=== PATIENT | female | born 1995 | race African-American/Black ===

== ENCOUNTER 2021-02-14 12:16 | Outpatient (CLI) | payer BC, SELFPAY ==
[2021-02-14 13:26] LABS: Hematocrit 37.8 % (37.0-47.0); Hemoglobin 11.7 g/dL (12.0-15.0); Mean Corpuscular Hemoglobin 23.5 pg (26-34); Mean Corpuscular Volume 75.9 fl (80-100); Mean Platelet Volume 10.2 fl (7.4-10.4); Platelet Count Result 296 k/mm3 (150-375); Red Blood Count 4.98 M/mm3 (4.2-5.4); Red Cell Distribution Width 16.8 % (11.5-14.5); White Blood Count 8.6 K/mm3 (4.5-10.0)
[2021-02-14 13:37] LABS: Prothrombin Time 13.8 Seconds (11.1-14.7)
[2021-02-14 13:38] LABS: Partial Thromboplastin Time 33.2 SECONDS (22.3-36.8)
[2021-02-14 13:56] LABS: Beta HCG Quantitative < 2.39 mIU/ML
[2021-02-14 14:01] LABS: Lymphocytes Absolute Manual 2.83 K/mm3 (1.1-4.5); Neutrophils Percent Manual 66 % (46-73); Total Cells Counted 100
[2021-02-14 14:02] LABS: Eosinophils Absolute Manual 0.08 K/mm3 (0.02-0.5); Eosinophils Percent Manual 1 % (0-4); Hypochromasia 3+ (NORMAL); Platelet Estimate Adequate (Adequate)
== END 2021-02-14 12:17 | disposition home or self-care (01) ==
PROVIDERS: PCP Obstetrics & Gynecology; Visit Provider Obstetrics & Gynecology
DX: N93.9 Abnormal uterine and vaginal bleeding, unspecified (principal)
CPT/HCPCS: 36415; 84443; 84702; 85025; 85610; 85730

== ENCOUNTER 2022-05-21 10:21 | Emergency (ER) | payer BC, SELFPAY ==
[2022-05-21 10:30] VITALS: BP 153/102; PULSE 114; RESP 20; TEMP 37.2; O2SAT 98
--- NOTE | 2022-05-21 10:49 | ED.URI ---
HPI - URI/Sore Throat General Chief Complaint: Upper Respiratory Infection Stated Complaint: Sore throat Time Seen by Provider: 05/21/22 10:51 Source: patient and RN notes reviewed Mode of arrival: ambulatory Limitations: no limitations History of Present Illness HPI Narrative: 27-year-old female who is 12 weeks presents with concern for sore throat, painful swallowing. Reports symptoms started yesterday. She reports having a slight fever this morning. She reports using Tylenol and throat spray. She denies trouble breathing, swollen lips, swollen tongue, nasal congestion, rhinorrhea, headache, nausea, vomiting. MD elicited complaint: sore throat Related Data Allergies Allergy/AdvReac Type Severity Reaction Status Date / Time No Known Allergies Allergy Verified 02/28/21 15:14 Review of Systems Review of Systems: CONSTITUTIONAL: Reports malaise, low-grade fever yesterday. Denies chills, sweats EYES: Denies visual changes, redness, or discharge. ENT: Denies rhinorrhea, congestion, sinus pain, otalgia. Reports painful swallowing and sore throat. CARDIOVASCULAR: Denies chest pain, palpitations, or edema. RESPIRATORY: Denies cough. Denies dyspnea. GASTROINTESTINAL: Denies abdominal pain, nausea, vomiting, diarrhea SKIN: Denies rash or itching. MUSCULOSKELETAL: Denies myalgia. NEUROLOGIC: Denies headache. All systems reviewed & are unremarkable except as noted in HPI and below PMFSH Past Medical History Medical History Anxiety Asthma Diabetes Endometriosis History of miscarriage x 3 IBS (irritable bowel syndrome) PCOS (polycystic ovarian syndrome) Von Willebrand disease, type I Surgical History Surgical History History of ankle surgery History of cholecystectomy History of endoscopy [place] teeth removed Family History Family History Father Hypertension Hyperlipidemia Mother Migraines Grandparent Asthma Breast cancer Diabetes mellitus Hypertension Social History Social History Smoking status: Never smoker Alcohol intake: current Substance use: never Comments At time of signature, agree with nursing past medical, surgical, social and family history. There is no relevant family history pertinent to the presenting complaint Exam Narrative: GENERAL: Well-appearing, well-nourished, and in no acute distress. HEAD: Normocephalic EYES: PERRLA, conjunctivae clear ENT: Nares clear. Mucous membranes moist. TM pearly pablo with dull light reflex bilaterally; no tragal tenderness. Oropharynx erythematous, excoriated, edematous. Tonsils enlarged and without exudate, no drooling, no trismus, uvula midline. Hoarse voice NECK: Supple. No lymphadenopathy CHEST: Clear to auscultation, breath sounds equal. No wheezing, rhonchi, rales, or stridor. No respiratory distress, speaks in full sentences. HEART: Regular rate and rhythm. No murmur heard. SKIN: Warm, dry, no rash. NEURO: Alert and oriented x3. PSYCH: Normal mood and affect Course Course Emergency Course: Discussed strict return to emergency room if her symptoms worsen or do not improve. Offered transfer to emergency room now, patient feels she can go home and knows when/if she needs to seek care at the emergency room Patient is aware of diagnosis, understands and agrees to treatment plan. Anticipatory guidance given. Patient agrees to follow-up as directed and is aware of reasons to seek care at the emergency department. Portions of this record may have been created with voice recognition software Level of Care: Express Care Visit Vital Signs Vital signs: Vital Signs Temperature 98.9 F 05/21/22 10:30 Pulse Rate 114 H 05/21/22 10:30 Respiratory Rate 20 05/21/22 10:30 Blood Pressure 153/102 H 05/21/22 10:30
[2022-05-21] MEDS: methylPREDNISolone SOD SUCC 125 MG VIAL IM (10:59)
== END 2022-05-21 11:38 | disposition home or self-care (01) ==
PROVIDERS: Emergency Provider Nurse Practitioner
DX: O99.511 Diseases of the respiratory system complicating pregnancy, first trimester (principal); Z3A.12 12 weeks gestation of pregnancy; J03.90 Acute tonsillitis, unspecified
CPT/HCPCS: 87081; 87147; 96372; 99213; G0463; J2930

== ENCOUNTER 2022-05-28 08:35 | Emergency (ER) | payer BC, SELFPAY ==
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
[2022-05-28] MEDS: IBUPROFEN 600 MG TABLET PO (09:43)
[2022-05-28 09:47] VITALS: BP 153/90; PULSE 93; RESP 18; TEMP 36.7; O2SAT 100
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
== END 2022-05-28 10:30 | disposition home or self-care (01) ==
PROVIDERS: Emergency Provider Emergency Medicine; PCP Family Medicine
DX: S00.03XA Contusion of scalp, initial encounter (principal); S16.1XXA Strain of muscle, fascia and tendon at neck level, initial encounter; V43.62XA Car passenger injured in collision with other type car in traffic accident, initial encounter
CPT/HCPCS: 70450; 72125; 99284; A9270

== ENCOUNTER 2022-09-24 11:14 | Emergency (ER) | payer BC, SELFPAY ==
--- NOTE | 2022-09-24 11:20 | ED.URI ---
HPI - URI/Sore Throat General Chief Complaint: Upper Respiratory Infection Stated Complaint: sore throat, cough, chest pain Time Seen by Provider: 09/24/22 11:21 Source: patient and RN notes reviewed History of Present Illness HPI Narrative: Patient is a 27-year-old female who presents to urgent care with complaints of cough, sore throat and chest tightness. Patient states that she gets the chest tightness with her asthma flare ups. States that it started on Saturday. Denies any fevers, congestion, nausea or vomiting. Patient has been using her ProAir inhaler as well as Tylenol cold and flu and Robitussin. Patient states that negative at home for COVID. No other acute complaints. No acute distress noted. Patient aware of the plan of care. Some parts of this dictation were generated by voice recognition software and may contain typographical and/or grammatical inaccuracies. Related Data Home Medications Medication Instructions Recorded Confirmed medroxyprogesterone 10 mg tablet 10 mg PO DAILY 09/24/22 09/24/22 Allergies Allergy/AdvReac Type Severity Reaction Status Date / Time No Known Allergies Allergy Verified 09/24/22 11:27 Review of Systems Review of Systems: CONSTITUTIONAL: Denies fever, chills, or sweats. EYES: Denies visual changes, redness, or discharge. ENT: Reports of sore throat CARDIOVASCULAR: Denies chest pain, palpitations, or edema. RESPIRATORY: Reports of cough and chest tightness GASTROINTESTINAL: Denies abdominal pain, nausea, vomiting, or diarrhea. GENITOURINARY: Denies dysuria or hematuria. SKIN: Denies rash or itching. MUSCULOSKELETAL: Denies back pain, joint pain, or myalgia. NEUROLOGIC: Denies headache, numbness, or weakness. All other systems reviewed are negative, except as documented in HPI. [facility] Past Medical History Medical History (Updated 09/24/22 @ 11:47 by TRUDY Ray) Anxiety Asthma Diabetes Endometriosis History of miscarriage x 3 IBS (irritable bowel syndrome) Patient denies significant medical history PCOS (polycystic ovarian syndrome) Von Willebrand disease, type I Surgical History Surgical History (Updated 07/12/22 @ 10:44 by Kuldip Wen) History of ankle surgery History of cholecystectomy History of endoscopy [place] teeth removed Family History Family History (System 07/12/22 @ 10:44 by Kuldip Wen) Father Hypertension Hyperlipidemia Mother Migraines Grandparent Asthma Breast cancer Diabetes mellitus Hypertension Social History Social History (System 07/12/22 @ 10:44 by Kuldip Wen) Smoking status: Never smoker Alcohol intake: current Substance use: never Comments At the time of my signature, I reviewed and agree with the nursing past medical, surgical, social, and family history. There is no relevant family history pertinent to the patient complaint. Exam Narrative: GENERAL: This is a well-nourished, well-developed patient, in no apparent distress. HEAD: normocephalic, atraumatic. EYES: PERRL. Sclera clear/white. Vision is grossly intact. EARS: External ears normal, auditory canals clear and without drainage, TMs normal without perforation. Hearing grossly intact. NOSE: External nose normal with no obvious nasal discharge, nares without redness, clear yellow rhinorrhea. THROAT: Mucous membranes moist, mild erythema in the posterior oropharynx without exudate or ulceration. Moderate postnasal drainage. NECK: Neck supple CARDIOVASCULAR: Regular rate and rhythm without murmurs, gallops, or rubs. RESPIRATORY: Cough noted exam. Clear to auscultation. Breath sounds equal bilaterally. No wheezes, rales, or rhonchi. SKIN: warm, intact with no suspicious lesions or rash, good texture and turgor. NEURO: awake, alert, and oriented to person, place and time. There were no obvious focal neurologic abnormalities. EXTREMITIES: No clubbing, cyanosis, or edema. Course Course Level of Care: Express Care Visit Vital Sig
[2022-09-24 11:31] VITALS: BP 135/88; PULSE 99; RESP 16; TEMP 37.1; O2SAT 100
== END 2022-09-24 11:51 | disposition home or self-care (01) ==
PROVIDERS: Emergency Provider Nurse Practitioner Family; PCP Radiology Radiation Oncology
DX: J00 Acute nasopharyngitis [common cold] (principal); E28.2 Polycystic ovarian syndrome; J45.909 Unspecified asthma, uncomplicated; E11.9 Type 2 diabetes mellitus without complications; K58.9 Irritable bowel syndrome, unspecified; N80.9 Endometriosis, unspecified; D68.01 Von Willebrand disease, type 1
CPT/HCPCS: 87081; 87804; 87880; 99213; G0463

== ENCOUNTER 2022-09-30 13:19 | Emergency (ER) | payer BC, SELFPAY ==
[2022-09-30] VITALS (7 sets, daily range): BP systolic 145–182; BP diastolic 86–106; PULSE 75–85; RESP 16–20; TEMP 36.3–36.8; O2SAT 98–100
--- NOTE | ~2022-09-30 | CT_ITS ---
EXAMINATION: CT brain wo con DATE: 09/30/2022 17:31 INDICATION: dizziness . TECHNIQUE: Computed tomography (CT) of the head was performed without intravenous contrast. The mA wa s adjusted according to patient size. Iterative reconstruction technique was employed. The dose-lengt h product was 605.33 mGy-cm. COMPARISON: 05/28/2022. FINDINGS: No acute intracranial hemorrhage or extra-axial fluid collection. No hydrocephalus, mass, or herniation. No acute ischemic infarct. Unremarkable dural venous sinus attenuation. No acute osseous abnormality. Mucosal thickening in the ethmoid air cells and sphenoid sinuses. Mucosal thickening and an air-fluid level in the right maxillary sinus. The remaining aerated spaces are clear. IMPRESSION: No acute intracranial process. CT findings suggestive of acute right maxillary sinusitis Reviewed, dictated and finalized at location K. 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
--- NOTE | 2022-09-30 13:26 | ECG_ITS ---
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
[2022-09-30 13:42] LABS: Basophils Absolute Auto 0.1 K/mm3 (0.0-0.1); Basophils Percent Auto 0.7 % (0.2-1.2); Eosinophils Absolute Auto 0.3 K/mm3 (0-0.3); Eosinophils Percent Auto 3.1 % (0-4.4); Hematocrit 37.2 % (37.0-47.0); Hemoglobin 11.6 g/dL (12.0-15.0); Immature Granulocyte Absolute 0.04 K/mm3 (0.00-0.031); Immature Granulocyte Percent A 0.4 % (0-0.5); Lymphocytes Absolute Auto 3.79 K/mm3 (0.9-3.2); Lymphocytes Percent Auto 36.4 % (18.3-44.2); Mean Corpuscular HGB Conc 31.2 g/dl (32-36); Mean Corpuscular Hemoglobin 25.1 pg (26-34); Mean Corpuscular Volume 80.3 fl (80-100); Mean Platelet Volume 10.1 fl (7.4-10.4); Monocytes Absolute Auto 0.6 K/mm3 (0.1-0.6); Monocytes Percent Auto 5.3 % (2.6-8.5); Neutrophils Absolute Auto 5.6 K/mm3 (1.3-6.7); Neutrophils Percent Auto 54.1 % (45.5-73.1); Platelet Count Result 289 k/mm3 (150-375); Red Blood Count 4.63 M/mm3 (4.2-5.4); Red Cell Distribution Width 15.9 % (11.5-14.5); White Blood Count 10.4 K/mm3 (4.5-10.0)
[2022-09-30 13:51] LABS: Alanine Aminotransferase 23 U/L (6-35); Albumin Level 4.4 g/dL (3.5-5.1); Alkaline Phosphatase 66 U/L (38-126); Anion Gap 8 mmol/L (8-16); Aspartate Amino Transferase 25 U/L (14-36); Bilirubin,Total 0.2 mg/dL (0.2-1.3); Blood Urea Nitrogen 9 mg/dL (7-17); Calcium 8.9 mg/dL (8.4-10.2); Carbon Dioxide 29 mmol/L (22-30); Chloride 102 mmol/L (98-107); Estimated Glomerular Filt Rate > 60; Glucose 89 mg/dL (65-110); Potassium 3.8 mmol/L (3.4-5.0); Sodium 139 mmol/L (137-145)
[2022-09-30] MEDS: MECLIZINE HCL 25 MG TABLET PO (15:39)
[2022-09-30] MEDS: SODIUM CHLORIDE 0.9% IV 1,000 ML 999 ML IV CONT ×2 (15:41→17:43)
--- NOTE | 2022-09-30 17:05 | ED.GENADULT ---
HPI - General Adult General Chief complaint: Dizziness Stated complaint: NAUSEA,DIZZINESS Time Seen by Provider: 09/30/22 15:23 History of Present Illness HPI narrative: Patient is a 27-year-old female who presents to the ER with sudden onset dizziness. Occurred while she was at work. It made her feel sweaty and nauseous. She also had some double vision. Symptoms are worse with movement. Reports recent viral URI with some congestion. No ear pressure or pain. No ringing in the ears. Has not had vertigo before. No numbness or tingling in the arms or legs. No slurred speech or extremity weakness. Patient has had some shortness of breath related to anxiousness. Related Data Home Medications Medication Instructions Recorded Confirmed medroxyprogesterone 10 mg tablet 10 mg PO DAILY 09/24/22 09/24/22 Allergies Allergy/AdvReac Type Severity Reaction Status Date / Time No Known Allergies Allergy Verified 09/24/22 11:27 Review of Systems Review of Systems: All systems reviewed & are unremarkable except as noted in HPI and below Constitutional: Constitutional: Denies chills, Denies fatigue and Denies fever(s) Eyes: Eyes: Reports change in vision (Double) and Denies photophobia ENT: Reports dizziness, Denies nasal congestion and Denies sore throat Cardiovascular: Cardiovascular: Denies chest pain, Denies rapid heart rate and Denies radiating jaw, neck or arm pain Respiratory: Respiratory: Denies cough, Reports dyspnea and Denies wheezing Gastrointestinal: Gastrointestinal: Denies abdominal pain, Reports nausea and Denies vomiting Neurologic: Reports dizziness, Denies syncope, Denies focal weakness and Denies numbness [facility] Past Medical History Medical History (Updated 09/30/22 @ 18:19 by Ramiro Valles MD) Anxiety Asthma Diabetes Endometriosis History of miscarriage x 3 IBS (irritable bowel syndrome) Patient denies significant medical history PCOS (polycystic ovarian syndrome) Von Willebrand disease, type I Surgical History Surgical History (Updated 07/12/22 @ 10:44 by Kuldip Wen) History of ankle surgery History of cholecystectomy History of endoscopy [place] teeth removed Family History Family History (System 07/12/22 @ 10:44 by Kuldip Wen) Father Hypertension Hyperlipidemia Mother Migraines Grandparent Asthma Breast cancer Diabetes mellitus Hypertension Social History Social History (System 07/12/22 @ 10:44 by Kuldip Wen) Smoking status: Never smoker Alcohol intake: current Substance use: never Exam Narrative: GENERAL: Well-appearing, well-nourished, and in no acute distress. HEAD: Normocephalic, atraumatic. EYES: PERRLA and EOMI. left gaze nystagmus. ENT: Mucous membranes moist. TMs normal bilaterally and ear canals free of cerumen. NECK: Supple. CHEST: Clear to auscultation. No respiratory distress. HEART: Regular rate and rhythm. Normal peripheral pulses. ABDOMEN: Soft, nontender, nondistended. EXTREMITIES: Normal range of motion. Chronic edema left ankle. SKIN: Warm, dry, no rash. NEURO: No facial droop or slurred speech. Normal strength and coordination of the extremities. Patient does have left gaze nystagmus. Alert and oriented x3. PSYCH: Normal mood and affect. Course Course Emergency Course: Patient up and ambulatory and feeling much better with fluids and meclizine. She still little tired. CT without CVA but there is sinusitis likely causing patient's peripheral vertigo. Discharged with supportive care and antibiotics. Vital Signs Vital signs: Vital Signs Temperature 98.1 F 09/30/22 13:24 Pulse Rate 82 09/30/22 13:24 Respiratory Rate 20 09/30/22 13:24 Blood Pressure 182/100 H 09/30/22 13:24 Pulse Oximetry 100 09/30/22 13:24 Oxygen Delivery Room Air 09/30/22 13:24 Temperature 98.3 F 09/30/22 17:00 Pulse Rate 75 09/30/22 17:00 Respiratory Rate 16 09/30/22 17:00 Blood Pressure 145/86 H 09/30/22
== END 2022-09-30 18:40 | disposition home or self-care (01) ==
PROVIDERS: Emergency Provider Emergency Medicine; PCP Radiology Radiation Oncology
DX: R42 Dizziness and giddiness (principal); J32.9 Chronic sinusitis, unspecified; J45.909 Unspecified asthma, uncomplicated; E11.9 Type 2 diabetes mellitus without complications; E28.2 Polycystic ovarian syndrome; N80.9 Endometriosis, unspecified; K58.9 Irritable bowel syndrome, unspecified; D68.01 Von Willebrand disease, type 1; R94.31 Abnormal electrocardiogram [ECG] [EKG]
CPT/HCPCS: 36415; 70450; 80053; 81025; 85025; 93005; 96360; 96361; 99284; A9270; J7030

== ENCOUNTER 2022-12-18 18:14 | Emergency (ER) | payer BC, SELFPAY ==
[2022-12-18 18:23] VITALS: BP 155/93; PULSE 74; RESP 16; TEMP 36.8; O2SAT 100
[2022-12-18 18:29] VITALS: BP 155/93; PULSE 74; RESP 16; TEMP 36.8; O2SAT 100
--- NOTE | 2022-12-18 18:42 | ED.GENADULT ---
HPI - General Adult General Chief complaint: Urogenital-Female Stated complaint: CONGESTION/DIZZY/TIRED Source: patient Mode of arrival: ambulatory Limitations: no limitations History of Present Illness HPI narrative: Patient presents requesting STI testing. She has a new male sex partner and would like to have routine screening. He is asymptomatic. She denies any urinary frequency, dysuria, hematuria, hesitancy or other urinary symptoms. Reports some nausea, low back pain, vomiting and tenderness in her breasts which made her suspect she may be . She took a test approximately 1 month ago which was negative. She repeated test approximately 2 weeks ago which she thinks had two faint lines. She is requesting repeat test. History of irregular menstruation. Not a contraception. LMP at the end of October 2022. Related Data Allergies Allergy/AdvReac Type Severity Reaction Status Date / Time No Known Allergies Allergy Verified 12/18/22 18:24 Review of Systems Review of Systems: CONSTITUTIONAL: Denies fever, chills, or sweats. EYES: Denies visual changes, redness, or discharge. ENT: Denies rhinorrhea, congestion, sore throat, or otalgia. CARDIOVASCULAR: Denies chest pain, palpitations, or edema. RESPIRATORY: Denies cough or dyspnea. GASTROINTESTINAL: Reports nausea and vomiting. Denies diarrhea or abdominal pain GENITOURINARY: Denies dysuria or hematuria. SKIN: Denies rash or itching. MUSCULOSKELETAL:Reports low back pain. Reports breast tenderness NEUROLOGIC: Denies headache, numbness, dizziness, or weakness. PSYCHIATRIC: Denies anxiety or depression. ON LICENSE OF [facility] Past Medical History Medical History Anxiety Asthma Diabetes Endometriosis History of miscarriage x 3 IBS (irritable bowel syndrome) Patient denies significant medical history PCOS (polycystic ovarian syndrome) Von Willebrand disease, type I Surgical History Surgical History History of ankle surgery History of cholecystectomy History of endoscopy [place] teeth removed Family History Family History Father Hypertension Hyperlipidemia Mother Migraines Grandparent Asthma Breast cancer Diabetes mellitus Hypertension Social History Social History Smoking status: Never smoker Alcohol intake: current Substance use: never Exam Narrative: GENERAL: Well-appearing, well-nourished, and in no acute distress. HEAD: Normocephalic, atraumatic. EYES: PERRLA and EOMI. ENT: Nares clear, no rhinorrhea or epistaxis. Mucous membranes moist. Oropharynx without tonsillar hypertrophy exudate or other lesions. Bilateral TMs pearly pablo nonbulging NECK: Supple. No adenopathy or masses. No carotid bruits or JVD CHEST: Clear to auscultation. No respiratory distress. No wheezes rales or rhonchi HEART: Regular rate and rhythm. No murmur heard. Normal peripheral pulses. ABDOMEN: Soft, nontender, nondistended, normal active bowel sounds. EXTREMITIES: Normal range of motion. No edema. SKIN: Warm, dry, no rash. NEURO: No focal deficits. Alert and oriented x3. PSYCH: Normal mood and affect. Course Course Emergency Course: This is a 27-year-old female who presented for evaluation of nausea, low back pain and breast tenderness requesting STI testing and test. test was negative. She declined pelvic exam. I think this is somewhat reasonable given the fact that she does not have any vaginal discharge or bleeding. She does have 1+ leukocytes in her urine. reports she does not have any urinary symptoms, she does have nausea and low back pain which would suggest urinary tract infection. We discussed waiting for urine culture results before initiating therapy versus starting
== END 2022-12-18 18:47 | disposition home or self-care (01) ==
PROVIDERS: Emergency Provider Nurse Practitioner
DX: N39.0 Urinary tract infection, site not specified (principal); R11.2 Nausea with vomiting, unspecified; J45.909 Unspecified asthma, uncomplicated; E11.9 Type 2 diabetes mellitus without complications; N80.9 Endometriosis, unspecified; E28.2 Polycystic ovarian syndrome; D68.01 Von Willebrand disease, type 1
CPT/HCPCS: 81003; 81025; 87086; 87088; 87491; 87591; 87661; 99214; G0463

== ENCOUNTER 2023-01-31 18:28 | Emergency (ER) | payer BC, SELFPAY ==
--- NOTE | 2023-01-31 18:35 | ED.GENADULT ---
HPI - General Adult General Chief complaint: Dental/Oral Stated complaint: DRY MOUTH/BUMP ON BACK OF TONGUE Source: patient and RN notes reviewed History of Present Illness HPI narrative: 27 yo F presents to urgent care with complaints of dry mouth today and a suspicious bump on back of tongue. Pt states she woke up with these symptoms. Pt reports having allergies last week which she took OTC allergy medicine for. Pt denies any pain, fevers, chills, sore throat, or other complaints. Related Data Home Medications Medication Instructions Recorded Confirmed albuterol sulfate 90 mcg/actuation inhalation 01/31/23 aerosol inhaler medroxyprogesterone 10 mg tablet mg 01/31/23 Allergies Allergy/AdvReac Type Severity Reaction Status Date / Time No Known Allergies Allergy Verified 01/31/23 18:40 Review of Systems Review of Systems: Pertinent positives and pertinent negatives per HPI. [facility] Past Medical History Medical History Anxiety Asthma Diabetes Endometriosis History of miscarriage x 3 IBS (irritable bowel syndrome) Patient denies significant medical history PCOS (polycystic ovarian syndrome) Von Willebrand disease, type I Surgical History Surgical History History of ankle surgery History of cholecystectomy History of endoscopy [place] teeth removed Family History Family History Father Hypertension Hyperlipidemia Mother Migraines Grandparent Asthma Breast cancer Diabetes mellitus Hypertension Social History Social History Smoking status: Never smoker Alcohol intake: current Substance use: never Comments At the time of my signature, I reviewed and agree with the nursing past medical, surgical, social, and family history. There is no relevant family history pertinent to the patient complaint. Exam Narrative: GENERAL: This is a well-nourished, well-developed patient, in no apparent distress. HEAD: normocephalic, atraumatic. EYES: Sclera clear/white. Vision is grossly intact. EARS: External ears normal, auditory canals clear and without drainage. Hearing grossly intact. NOSE: External nose normal with no obvious nasal discharge, nares without redness, no rhinorrhea. THROAT: Mucous membranes moist, posterior pharynx clear. MOUTH: flesh-colored, raised, papilae to back of tongue NECK: Neck supple, non-tender without lymphadenopathy, masses or thyromegaly. CARDIOVASCULAR: Regular rate and rhythm without murmurs, gallops, or rubs. RESPIRATORY: Clear to auscultation. Breath sounds equal bilaterally. No wheezes, rales, or rhonchi. GASTROINTESTINAL: Abdomen soft, non-tender, nondistended. Bowel sounds are active. No hepato-splenomegaly, or palpable masses. No guarding. SKIN: warm, intact with no suspicious lesions or rash, good texture and turgor. NEURO: awake, alert, and oriented to person, place and time. There were no obvious focal neurologic abnormalities. EXTREMITIES: No clubbing, cyanosis, or edema. No joint tenderness, effusion, or edema noted. BACK: Nontender without deformity or crepitance. No flank tenderness. Course Course Level of Care: Express Care Visit Vital Signs Vital signs: Vital Signs Temperature 98.1 F 01/31/23 18:43 Pulse Rate 84 01/31/23 18:43 Respiratory Rate 16 01/31/23 18:43 Blood Pressure 154/106 H 01/31/23 18:43 Pulse Oximetry 100 01/31/23 18:43 Oxygen Delivery Room Air 01/31/23 18:43 Temperature 98.1 F 01/31/23 18:43 Pulse Rate 84 01/31/23 18:43 Respiratory Rate 16 01/31/23 18:43 Blood Pressure 154/106 H 01/31/23 18:43 Pulse Oximetry 100 01/31/23 18:43 Oxygen Delivery Room Air 01/31/23 18:43 reviewed Medical Decision Making MDM Narrative Medical decision making na
[2023-01-31 18:43] VITALS: BP 154/106; PULSE 84; RESP 16; TEMP 36.7; O2SAT 100
== END 2023-01-31 19:06 | disposition home or self-care (01) ==
PROVIDERS: Emergency Provider Nurse Practitioner Family; PCP Family Medicine
DX: J30.2 Other seasonal allergic rhinitis (principal); J45.909 Unspecified asthma, uncomplicated; E11.9 Type 2 diabetes mellitus without complications; N80.9 Endometriosis, unspecified; E28.2 Polycystic ovarian syndrome
CPT/HCPCS: 99211; G0463

== ENCOUNTER 2023-03-29 10:11 | Emergency (ER) | payer BC, SELFPAY ==
--- NOTE | ~2023-03-29 | XR_ITS ---
EXAMINATION: XR hand LT min 3V DATE: 03/29/2023 10:49 INDICATION: Pain at the left fourth and fifth metacarpals after the hand was shut in a car door. TECHNIQUE: Posteroanterior, oblique and lateral views of the left hand were obtained. COMPARISON: None. FINDINGS: Alignment is normal. No fracture. Joint spaces are normal. Soft tissues are unremarkable. IMPRESSION: 1. . Negative left hand radiographs. Reviewed, dictated and finalized at location A.
--- NOTE | 2023-03-29 10:15 | ED.GENADULT ---
HPI - General Adult General Chief complaint: Extremity Injury, Upper Stated complaint: MED REFILL Time Seen by Provider: 03/29/23 10:14 Source: patient Mode of arrival: ambulatory Limitations: no limitations History of Present Illness HPI narrative: Patient is a 28-year-old female who presents with left hand pain after shutting it in a door on saturday. Patient has been using ice, Akira wrap, ibuprofen with mild relief. States she is still able to use her fingers and hand normally. Denies any numbness, tingling, weakness to left hand. Also requesting refill for control. States she has a primary care provider appointment in 3 weeks, but needs control to prevent heavy bleeding with periods. Related Data Home Medications Medication Instructions Recorded Confirmed albuterol sulfate 90 mcg/actuation 2 inh inhalation QID PRN Shortness 01/31/23 03/29/23 aerosol inhaler Of Breath desmopressin 0.83 mcg/spray (0.1 0.83 mcg intranasal PRN PRN 01/31/23 03/29/23 mL) nasal spray Menstrual Pain medroxyprogesterone 10 mg tablet 10 mg PO DAILY 01/31/23 03/29/23 Allergies Allergy/AdvReac Type Severity Reaction Status Date / Time No Known Allergies Allergy Verified 03/29/23 10:34 Review of Systems Review of Systems: All systems reviewed & are unremarkable except as noted in HPI and below Constitutional: Constitutional: Denies body ache(s), Denies chills, Denies fatigue, Denies fever(s), Denies headache(s), Denies malaise and Denies weakness Eyes: Eyes: Denies blurry vision, Denies irritation and Denies loss of vision ENT: Denies otalgia, Denies headache(s), Denies nasal discharge, Denies sinus pain and Denies sore throat Cardiovascular: Cardiovascular: Denies chest pain, Denies irregular heart rhythm and Denies dyspnea Respiratory: Respiratory: Denies dyspnea Gastrointestinal: Gastrointestinal: Denies abdominal pain, Denies melena, Denies hematochezia, Denies diarrhea, Denies nausea and Denies vomiting Musculoskeletal: Musculoskeletal: Denies back pain, Denies myalgias and Reports arthralgias (left hand) Integumentary/Breasts: Skin/Breast: Denies pruritus and Denies rash Neurologic: Denies headache(s), Denies loss of vision and Denies weakness Psychiatric: Psychiatric: Reports no additional psychiatric complaints Endocrine: Endocrine: Denies fatigue PMFSH Past Medical History Medical History Anxiety Asthma Diabetes Endometriosis History of miscarriage x 3 IBS (irritable bowel syndrome) Patient denies significant medical history PCOS (polycystic ovarian syndrome) Von Willebrand disease, type I Surgical History Surgical History History of ankle surgery History of cholecystectomy History of endoscopy [place] teeth removed Family History Family History Father Hypertension Hyperlipidemia Mother Migraines Grandparent Asthma Breast cancer Diabetes mellitus Hypertension Social History Social History Smoking status: Never smoker Alcohol intake: current Substance use: never Comments At time of signature, agree with nursing past medical, surgical, social and family history. There is no relevant family history pertinent to the presenting complaint. Exam Const: General: cooperative, healthy appearing, comfortable, no acute distress and well nourished Nutritional Appearance: well nourished Orientation/consciousness: patient oriented x3 Limitations: no limitations HENMT: Head: normal to inspection, normocephalic and atraumatic Ears: hearing grossly normal bilaterally and external ears normal Face/Nose/Sinus: Normal external nose present, normal facial exam and face symmetric Face and sinus: normal facial exam and face symmetric Mouth: Yes lip
[2023-03-29 10:27] VITALS: BP 150/105; PULSE 71; RESP 16; TEMP 36.8; O2SAT 100
[2023-03-29 10:29] VITALS: BP 159/97; PULSE 80; RESP 16; TEMP 36.8; O2SAT 100
== END 2023-03-29 11:25 | disposition home or self-care (01) ==
PROVIDERS: Emergency Provider Nurse Practitioner Family; PCP Family Medicine
DX: M79.642 Pain in left hand (principal); Z76.0 Encounter for issue of repeat prescription; J45.909 Unspecified asthma, uncomplicated; E11.9 Type 2 diabetes mellitus without complications; E28.2 Polycystic ovarian syndrome
CPT/HCPCS: 73130; 99213; G0463

== ENCOUNTER 2023-04-02 12:39 | Emergency (ER) | payer BC, SELFPAY ==
[2023-04-02] VITALS (12 sets, daily range): BP systolic 113–170; BP diastolic 84–95; PULSE 60–81; RESP 16–26; TEMP 36.7; O2SAT 98–100
--- NOTE | ~2023-04-02 | XR_ITS ---
EXAMINATION: XR chest 2V DATE: 04/02/2023 13:21 INDICATION: Midline chest pain. Shortness of breath. TECHNIQUE: Frontal and lateral views of the chest were obtained. COMPARISON: Chest single view 06/29/2021 FINDINGS: The chest demonstrates clear lungs without pneumonia, pleural effusion, or pneumothorax. Th e heart size is normal. Surgical clips in the right upper quadrant are likely from cholecystectomy. IMPRESSION: 1. No acute cardiopulmonary disease. Reviewed, dictated and finalized at location L.
--- NOTE | 2023-04-02 12:41 | ECG_ITS ---
Measurements Intervals [place] Rate: 100 P: 48 CT: 145 QRS: -29 QRSD: 89 T: 27 QT: 341 QTc: 440 Interpretive Statements SINUS TACHYCARDIA INCOMPLETE RIGHT BUNDLE BRANCH BLOCK BORDERLINE R WAVE PROGRESSION, ANTERIOR LEADS VOLTAGE CRITERIA FOR LVH BORDERLINE T WAVE ABNORMALITY- INFERIOR LEADS BORDERLINE ECG COMPARISON TO PRIOR ECG 09-30-22 13:33 SINUS TACHYCARDIA NOW PRESENT Electronically Signed On 04-02-2023 13:15:29 CDT by Leo Pringle D.O.
[2023-04-02 13:10] LABS: Basophils Absolute Auto 0.1 K/mm3 (0.0-0.1); Basophils Percent Auto 0.6 % (0.2-1.2); Eosinophils Absolute Auto 0.1 K/mm3 (0-0.3); Eosinophils Percent Auto 1.5 % (0-4.4); Hematocrit 41.2 % (37.0-47.0); Hemoglobin 12.9 g/dL (12.0-15.0); Immature Granulocyte Absolute 0.05 K/mm3 (0.00-0.031); Immature Granulocyte Percent A 0.6 % (0-0.5); Lymphocytes Absolute Auto 3.07 K/mm3 (0.9-3.2); Lymphocytes Percent Auto 35.4 % (18.3-44.2); Mean Corpuscular HGB Conc 31.3 g/dl (32-36); Mean Corpuscular Hemoglobin 25.5 pg (26-34); Mean Corpuscular Volume 81.4 fl (80-100); Mean Platelet Volume 10.1 fl (7.4-10.4); Monocytes Absolute Auto 0.3 K/mm3 (0.1-0.6); Monocytes Percent Auto 3.3 % (2.6-8.5); Neutrophils Absolute Auto 5.1 K/mm3 (1.3-6.7); Neutrophils Percent Auto 58.6 % (45.5-73.1); Platelet Count Result 277 k/mm3 (150-375); Red Blood Count 5.06 M/mm3 (4.2-5.4); Red Cell Distribution Width 15.9 % (11.5-14.5); White Blood Count 8.7 K/mm3 (4.5-10.0)
[2023-04-02 13:20] LABS: Alanine Aminotransferase 26 U/L (6-35); Albumin Level 4.6 g/dL (3.5-5.1); Alkaline Phosphatase 61 U/L (38-126); Anion Gap 8 mmol/L (8-16); Aspartate Amino Transferase 28 U/L (14-36); Bilirubin,Total 0.4 mg/dL (0.2-1.3); Blood Urea Nitrogen 6 mg/dL (7-17); Calcium 9.3 mg/dL (8.4-10.2); Carbon Dioxide 31 mmol/L (22-30); Chloride 100 mmol/L (98-107); Estimated Glomerular Filt Rate > 60; Glucose 115 mg/dL (65-110); Lipase 50 U/L (23-300); Lipase 54 U/L (23-300); Potassium 3.6 mmol/L (3.4-5.0); Sodium 139 mmol/L (137-145)
[2023-04-02 13:32] LABS: Troponin I < 0.012 ng/mL (0.000-0.034)
[2023-04-02 13:37] LABS: Prothrombin Time 13.3 Seconds (11.1-14.7)
--- NOTE | 2023-04-02 13:50 | ED.CHESTPAIN ---
HPI - Chest Pain General Chief Complaint: Chest Pain Stated Complaint: chest pain, abd pain, sob Time Seen by Provider: 04/02/23 13:18 History of Present Illness HPI narrative: 28-year-old female presented to ED for evaluation of epigastric and chest pain that started yesterday while she was sitting at rest and watching TV. Patient does have a prior history of gastric inflammation on a previous EGD. Patient does not take medications daily for gastritis. Patient denies any prior cardiac history. Patient does have a history of asthma. Patient states he does not drink alcohol daily. Patient does have a history of cholecystectomy. Patient denies any prior history of pancreatitis. Related Data Home Medications Medication Instructions Recorded Confirmed albuterol sulfate 90 mcg/actuation 2 inh inhalation QID PRN Shortness 01/31/23 03/29/23 aerosol inhaler Of Breath desmopressin 0.83 mcg/spray (0.1 0.83 mcg intranasal PRN PRN 01/31/23 03/29/23 mL) nasal spray Menstrual Pain medroxyprogesterone 10 mg tablet 10 mg PO DAILY 01/31/23 03/29/23 Allergies Allergy/AdvReac Type Severity Reaction Status Date / Time No Known Allergies Allergy Verified 03/29/23 10:34 Review of Systems Review of Systems: All systems reviewed & are unremarkable except as noted in HPI and below PMFSH Past Medical History Medical History Anxiety Asthma Diabetes Endometriosis History of miscarriage x 3 IBS (irritable bowel syndrome) Patient denies significant medical history PCOS (polycystic ovarian syndrome) Von Willebrand disease, type I Surgical History Surgical History History of ankle surgery History of cholecystectomy History of endoscopy [place] teeth removed Family History Family History Father Hypertension Hyperlipidemia Mother Migraines Grandparent Asthma Breast cancer Diabetes mellitus Hypertension Social History Social History Smoking status: Never smoker Alcohol intake: current Substance use: never Exam Narrative: APPEARANCE: Well appearing, no pain, no distress, well-nourished. HEAD: normocephalic, atraumatic. EYES: PERRLA/EOMI, conjunctivae clear. NOSE: Normal no drainage NECK: Supple. No adenopathy, no masses. RESPIRATORY: Airway patent, respirations nonlabored. Clear to auscultation bilaterally, no rales, rhonchi, wheezing. CARDIOVASCULAR: Regular rate and rhythm without murmurs rubs or gallops. ABDOMINAL: Soft, epigastric tenderness to palpation MUSCULOSKELETAL: Moves all extremities. Strength/ROM intact, No edema, No calf tenderness. NEURO: Alert. Cranial nerves II through XII intact. Grossly intact SKIN: Warm, dry. Normal Color Course Course Emergency Course: 28-year-old female presented a evaluation for epigastric and chest pain that started last night. Patient is afebrile with no leukocytosis patient has a stable hemoglobin. Patient CMP is within normal limits, patient does not have an elevated lipase and patient's first troponin is normal. Chest x-ray shows no acute cardiopulmonary abnormality. Patient did feel improved with treatment. Patient did have negative serial troponins. Patient was updated with results of their work-up and was encouraged to take Prilosec [id number] and to have close follow-up with GI. Vital Signs Vital signs: Vital Signs Temperature 98.1 F 04/02/23 12:43 Respiratory Rate 16 04/02/23 12:43 Blood Pressure 170/95 H 04/02/23 12:43 Pulse Oximetry 99 04/02/23 12:43 Oxygen Delivery Room Air 04/02/23 12:43 Temperature 98.1 F 04/02/23 12:43 Pulse Rate 80 04/02/23 16:45 Respiratory Rate 26 H 04/02/23 16:45 Blood Pressure 136/84 04/02/23 16:45 Pulse Oximetry 99 04/02/23 16:4
[2023-04-02] MEDS: PANTOPRAZOLE SODIUM IV 40 MG VIAL IV PUSH (14:36)
[2023-04-02] MEDS: BELLADONNA ALK/PHENOB ELIX 10 ML, MAG HYDROX/ALUMINUM HYD/SIMETH 30 ML, LIDOCAINE HCL 2... PO (14:36)
[2023-04-02 15:38] LABS: Appearance Urine Clear (Clear); Bacteria Urine None Seen /hpf; Bilirubin Urine Negative (Negative); Blood Urine Negative (Negative); Color Urine Yellow (Yellow); Glucose Urine UA Negative (Negative); Ketones Urine Negative (Negative); Leukocyte Esterase Ur 1+ LEU/UL (Negative); Need Manual Microscopic Reviewed; Nitrate Urine Negative (Negative); Non Pathogenic Casts 0-2; Protein Urine Negative (Negative); RBC Urine 0-2 /hpf (0-2); Specific Grav Ur 1.005 (1.001-1.035); Squamous Epithelial Cell Urine None seen /hpf (Few); Urobilinogen Urine 0.2 mg/dL (<2.0); WBC Urine 0-5 /hpf
[2023-04-02 15:40] LABS: Add Urine Microscopic? YES
[2023-04-02 16:29] LABS: Troponin I < 0.012 ng/mL (0.000-0.034)
== END 2023-04-02 16:53 | disposition home or self-care (01) ==
PROVIDERS: Emergency Provider Emergency Medicine; PCP Family Medicine
DX: R10.13 Epigastric pain (principal); R07.89 Other chest pain; J45.909 Unspecified asthma, uncomplicated; E11.9 Type 2 diabetes mellitus without complications; K58.9 Irritable bowel syndrome, unspecified; E28.2 Polycystic ovarian syndrome; D68.01 Von Willebrand disease, type 1; Z90.49 Acquired absence of other specified parts of digestive tract; I45.10 Unspecified right bundle-branch block; R00.0 Tachycardia, unspecified; R94.31 Abnormal electrocardiogram [ECG] [EKG]
CPT/HCPCS: 36415; 71046; 80053; 81001; 81025; 83690; 84484; 85025; 85610; 85730; 93005; 96374; 99284; A9270; C9113

== ENCOUNTER 2023-06-28 08:52 | Emergency (ER) | payer BC, SELFPAY ==
--- NOTE | ~2023-06-28 | US_ITS ---
EXAMINATION: US pelvic complete w TV DATE: 06/28/2023 11:25 INDICATION: Right lower quadrant and mid pelvic pain Comparison:No prior studies for comparison. TECHNIQUE: Multiple transabdominal and endovaginal sonographic images of the pelvis performed. FINDINGS: The uterus measures 7.6 x 3.8 x 3.9 cm. There are nabothian cysts. The endometrial complex measures 2 mm. The right ovary measures 4.1 x 2 x 2 cm and the left ovary measures 3.7 x 1.8 x 2.3 cm. There are sm all follicles in each ovary. Normal doppler signal in both ovaries. There is no free fluid in the pelvis. There are no abnormal masses seen on either side. IMPRESSION: 1. Unremarkable pelvic ultrasound. Reviewed, dictated and finalized at location B.
--- NOTE | ~2023-06-28 | CT_ITS ---
EXAMINATION: CT abdomen pelvis w con INDICATION: Abdominal pain TECHNIQUE: Computed tomographic images of the abdomen and pelvis were obtained after the administrati on of 100 cc of Omnipaque 350 intravenous contrast. The dose-length product (DLP) was 1540.49 mGy-cm. Automated exposure control and iterative reconstruction technique were employed. COMPARISON: None available FINDINGS: The lung bases are clear. The heart size is normal. Changes of cholecystectomy are noted. T he spleen, pancreas, and adrenal glands are normal. The kidneys are unremarkable. No pathologically e nlarged abdominal or pelvic lymph nodes are identified. No free intraperitoneal gas or evidence of teodoro wel obstruction. There is questionable mild wall thickening of the distal stomach which is incomplete ly distended. The appendix is normal. IMPRESSION: 1. Possible mild wall thickening of the distal stomach which could be due to gastritis or incomplete distention. Reviewed, dictated and finalized at location A. IMPRESSION: 1. Possible mild wall thickening of the distal stomach which could be due to ga stritis or incomplete distention.
[2023-06-28 09:18] VITALS: BP 149/104; PULSE 72; RESP 20; TEMP 36.9; O2SAT 100
[2023-06-28 09:45] LABS: Basophils Absolute Auto 0.1 K/mm3 (0.0-0.1); Basophils Percent Auto 0.9 % (0.2-1.2); Eosinophils Absolute Auto 0.1 K/mm3 (0-0.3); Eosinophils Percent Auto 1.6 % (0-4.4); Hematocrit 39.2 % (37.0-47.0); Hemoglobin 12.1 g/dL (12.0-15.0); Lymphocytes Percent Auto 36.2 % (18.3-44.2); Mean Corpuscular HGB Conc 30.9 g/dl (32-36); Mean Corpuscular Hemoglobin 25.6 pg (26-34); Mean Corpuscular Volume 83.1 fl (80-100); Mean Platelet Volume 10.5 fl (7.4-10.4); Monocytes Absolute Auto 0.4 K/mm3 (0.1-0.6); Monocytes Percent Auto 7.1 % (2.6-8.5); Neutrophils Percent Auto 54.2 % (45.5-73.1); Platelet Count Result 227 k/mm3 (150-375); Red Blood Count 4.72 M/mm3 (4.2-5.4); Red Cell Distribution Width 14.9 % (11.5-14.5); White Blood Count 5.5 K/mm3 (4.5-10.0)
[2023-06-28 09:50] LABS: Appearance Urine Clear (Clear); Bacteria Urine None Seen /hpf; Bilirubin Urine Negative (Negative); Blood Urine Negative (Negative); Color Urine Yellow (Yellow); Glucose Urine UA Negative (Negative); Ketones Urine Negative (Negative); Leukocyte Esterase Ur Trace LEU/UL (Negative); Nitrate Urine Negative (Negative); Non Pathogenic Casts 0-2; Protein Urine Negative (Negative); RBC Urine 0-2 /hpf (0-2); Specific Grav Ur 1.013 (1.001-1.035); Squamous Epithelial Cell Urine Occasional /hpf (Few); Urobilinogen Urine 0.2 mg/dL (<2.0); WBC Urine 0-5 /hpf; pH Urine 5.5 (5.0-9.0)
[2023-06-28 09:51] LABS: Add Urine Microscopic? YES
[2023-06-28 10:00] LABS: Alanine Aminotransferase 21 U/L (6-35); Albumin Level 4.1 g/dL (3.5-5.1); Alkaline Phosphatase 53 U/L (38-126); Anion Gap 0 mmol/L (8-16); Aspartate Amino Transferase 25 U/L (14-36); Bilirubin,Total 0.2 mg/dL (0.2-1.3); Blood Urea Nitrogen 8 mg/dL (7-17); Carbon Dioxide 31 mmol/L (22-30); Chloride 103 mmol/L (98-107); Estimated Glomerular Filt Rate > 60; Glucose 80 mg/dL (65-110); Lipase 63 U/L (23-300); Potassium 4.3 mmol/L (3.4-5.0); Sodium 134 mmol/L (137-145)
[2023-06-28 10:01] VITALS: BP 144/88; PULSE 67; RESP 14; O2SAT 100
[2023-06-28] MEDS: ONDANSETRON INJ 4 MG/2 ML VIAL IV PUSH (10:07)
[2023-06-28] MEDS: SODIUM CHLORIDE 0.9% IV 1,000 ML 999 ML IV CONT (10:07)
[2023-06-28] MEDS: ACETAMINOPHEN 500 MG TABLET 1000 MG PO (10:07)
--- NOTE | 2023-06-28 11:18 | ED.ABDPAIN ---
HPI - Abdominal Pain General Chief Complaint: Abdominal Pain Stated Complaint: abd pain Time Seen by Provider: 06/28/23 09:08 Source: patient Mode of arrival: ambulatory Limitations: no limitations History of Present Illness HPI narrative: Patient is a 28-year-old female who presents to the ED with report of lower abdominal pain. Patient reports she has not been feeling well for the last 1 week. She has complained of right sided and lower abdominal pain, urinary symptoms, intermittent nausea, and vomiting. She was seen at [place] urgent [facility] a few days ago and diagnosed with a UTI. She was started on Macrobid. Patient has tolerated Macrobid in the past. She denies any further dysuria or frequency since starting Macrobid. Denies hematuria. She notes her recently had UTI symptoms as well that ended up being PID. Patient denies any abnormal vaginal bleeding or vaginal discharge. She denies any fever, diarrhea, constipation. Patient has not tried anything for pain. Related Data Home Medications Medication Instructions Recorded Confirmed albuterol sulfate 90 mcg/actuation 2 inh inhalation QID PRN Shortness 01/31/23 03/29/23 aerosol inhaler Of Breath desmopressin 0.83 mcg/spray (0.1 0.83 mcg intranasal PRN PRN 01/31/23 03/29/23 mL) nasal spray Menstrual Pain medroxyprogesterone 10 mg tablet 10 mg PO DAILY 01/31/23 03/29/23 Allergies Allergy/AdvReac Type Severity Reaction Status Date / Time No Known Allergies Allergy Verified 06/28/23 09:21 Review of Systems Review of Systems: CONSTITUTIONAL: Denies fever, chills, or sweats. CARDIOVASCULAR: Denies chest pain. RESPIRATORY: Denies dyspnea. GASTROINTESTINAL: See HPI. GENITOURINARY: See HPI. SKIN: Denies rash or itching. MUSCULOSKELETAL: Denies back pain, joint pain, or myalgia. NEUROLOGIC: Denies headache, numbness, or weakness. All systems reviewed & are unremarkable except as noted in HPI and below PMFSH Past Medical History Medical History Anxiety Asthma Diabetes Endometriosis History of miscarriage x 3 IBS (irritable bowel syndrome) Patient denies significant medical history PCOS (polycystic ovarian syndrome) Von Willebrand disease, type I Surgical History Surgical History History of ankle surgery History of cholecystectomy History of endoscopy [place] teeth removed Family History Family History Father Hypertension Hyperlipidemia Mother Migraines Grandparent Asthma Breast cancer Diabetes mellitus Hypertension Social History Social History Smoking status: Never smoker Alcohol intake: current Substance use: never Exam Narrative: GENERAL: Well appearing, morbidly obese with BMI of 52.6, non-toxic, in no acute distress. HEAD: Normocephalic, atraumatic. NECK: Supple. No adenopathy, no masses. RESPIRATORY: Airway patent, respirations nonlabored. Clear to auscultation bilaterally, no rales, rhonchi, wheezing. CARDIOVASCULAR: Regular rate and rhythm without murmurs, rubs, or gallops. Radial pulses 2+ and equal bilaterally. ABDOMINAL: Soft, mild tenderness over suprapubic region, no other significant focal tenderness throughout abdomen, nondistended, no hepatosplenomegaly. Normoactive BS. MUSCULOSKELETAL: Moves all extremities. Strength/ROM intact without gross deformities. SKIN: Warm, dry, normal color. No rashes. NEURO: A&O X3. Speech clear. Cranial nerves II-XII grossly intact. Steady gait. No ataxic movements. PSYCHIATRIC: Appropriate mood and affect. Normal interaction. Course Vital Signs Vital signs: Vital Signs Temperature 98.4 F 06/28/23 09:18 Pulse Rate 72 06/28/23 09:18 Respiratory Rate 20 06/28/23 09:18 Blood Pressure 149/104 H 06/28/23 09:18 Puls
[2023-06-28 12:09] VITALS: BP 120/64; PULSE 70; RESP 20; O2SAT 100
[2023-06-28 13:48] VITALS: BP 143/94; PULSE 76; RESP 20; O2SAT 100
[2023-06-28 14:52] VITALS: BP 110/70; PULSE 74; RESP 16; O2SAT 100
== END 2023-06-28 14:52 | disposition home or self-care (01) ==
PROVIDERS: Emergency Provider Physician Assistant; PCP Family Medicine
DX: R10.30 Lower abdominal pain, unspecified (principal); N80.9 Endometriosis, unspecified; N39.0 Urinary tract infection, site not specified; J45.909 Unspecified asthma, uncomplicated; E11.9 Type 2 diabetes mellitus without complications; E28.2 Polycystic ovarian syndrome; D68.01 Von Willebrand disease, type 1; K58.9 Irritable bowel syndrome, unspecified; Z90.49 Acquired absence of other specified parts of digestive tract
CPT/HCPCS: 36415; 74177; 76830; 76856; 80053; 81001; 81025; 83690; 85025; 96361; 96374; 96375; 99284; A9270; J2405; J7030; Q9967

== ENCOUNTER 2023-07-12 09:38 | Emergency (ER) | payer BC, SELFPAY ==
--- NOTE | ~2023-07-12 | XR_ITS ---
EXAMINATION: XR hip RT min 2V DATE: 07/12/2023 10:41 INDICATION: Right hip pain TECHNIQUE: Two views of right hip were obtained. COMPARISON: None. FINDINGS: Bone alignment is normal. There is no fracture. The soft tissues are unremarkable. IMPRESSION: 1. No acute osseous abnormality. Reviewed, dictated and finalized at location B.
[2023-07-12 09:51] VITALS: BP 163/102; PULSE 61; RESP 16; TEMP 36.4; O2SAT 100
--- NOTE | 2023-07-12 09:57 | ED.LOWEXIN ---
HPI - Extremity Injury (Lower) General Chief Complaint: Extremity Injury, Lower Stated Complaint: FALL/R HIP PAIN Source: patient Mode of arrival: ambulatory Limitations: no limitations History of Present Illness HPI Narrative: 28 y/o female presented for c/o right hip pain for 4 days. States she fell while getting out of bed, landing on the right hip. Endorses pain worse when walking and has been walking with a limp. Taking Tylenol, using lidocaine patches, pain cream and ice packs. Denies numbness, tingling or weakness of the leg. Rates pain 6/10 at rest. Related Data Home Medications Medication Instructions Recorded Confirmed dicyclomine 10 mg capsule 10 mg PO TID 07/12/23 07/12/23 Allergies Allergy/AdvReac Type Severity Reaction Status Date / Time No Known Allergies Allergy Verified 07/12/23 09:47 Review of Systems Review of Systems: CONSTITUTIONAL: Denies body aches, fever, chills EYES: Denies visual changes ENT: Denies rhinorrhea, congestion CARDIOVASCULAR: Denies chest pain, palpitations, or edema. RESPIRATORY: Denies cough or dyspnea. GASTROINTESTINAL: Denies abdominal pain, nausea, vomiting, or diarrhea. SKIN: Denies rash, itching, or wounds. MUSCULOSKELETAL: Reports right hip pain Denies back pain, or myalgia. NEUROLOGIC: Denies headache, numbness, tingling, or weakness. All systems reviewed & are unremarkable except as noted in HPI and below PMFSH Past Medical History Medical History Anxiety Asthma Diabetes Endometriosis History of miscarriage x 3 IBS (irritable bowel syndrome) Patient denies significant medical history PCOS (polycystic ovarian syndrome) Von Willebrand disease, type I Surgical History Surgical History History of ankle surgery History of cholecystectomy History of endoscopy [place] teeth removed Family History Family History Father Hypertension Hyperlipidemia Mother Migraines Grandparent Asthma Breast cancer Diabetes mellitus Hypertension Social History Social History Smoking status: Never smoker Alcohol intake: current Substance use: never Comments At time of signature, I have reviewed and agree with nursing past medical, surgical, social and family history unless otherwise noted. Please see nursing chart for further information. There is no relevant family history pertinent to the presenting complaint Exam Narrative: GENERAL: Well-appearing HEAD: Normocephalic, atraumatic. EYES: PERRLA, conjunctivae clear NECK: Supple. CHEST: Speaks in full sentences. No respiratory distress. HEART: Regular rate and rhythm. Normal and equal peripheral pulses. EXTREMITIES: RLE has normal strength and sensation, Able to stand on the right leg to step onto the exam table. Normal active range of motion at hip but endorses pain with movement and tender with palpation of lateral and anterior hip; No ecchymosis, No open wounds, or obvious deformity; alignment normal, pulse palpable and equal bilaterally, skin warm, dry, pink. Capillary refill less than 3 seconds. SKIN: Warm, dry, no rash. NEURO: Alert and oriented x3. PSYCH: Normal mood and affect Course Course Emergency Course: Patient is aware of diagnosis, understands and agrees to treatment plan. Anticipatory guidance given. Patient agrees to follow-up as directed and is aware of reasons to seek care at the emergency department. Portions of this record may have been created with voice recognition software Level of Care: Express Care Visit Vital Signs Vital signs: Vital Signs Temperature 97.6 F 07/12/23 09:51 Pulse Rate 61 07/12/23 09:51 Respiratory Rate 16 07/12/23 09:51 Blood Pressure 163/102 H 07/12/23 09:51 Pulse Oximetry 100 07/12/23 09:51 Tem
== END 2023-07-12 11:00 | disposition home or self-care (01) ==
PROVIDERS: Emergency Provider Nurse Practitioner Family; PCP Family Medicine
DX: M25.551 Pain in right hip (principal); E11.9 Type 2 diabetes mellitus without complications; N80.9 Endometriosis, unspecified; J45.909 Unspecified asthma, uncomplicated; E28.2 Polycystic ovarian syndrome; D68.01 Von Willebrand disease, type 1
CPT/HCPCS: 73502; 99213; G0463

== ENCOUNTER 2023-07-27 10:03 | Emergency (ER) | payer BC, SELFPAY ==
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
--- NOTE | ~2023-07-27 | XR_ITS ---
XR elbow RT min 3V 07/27/2023 11:31 INDICATION: Right elbow pain PROCEDURE: 4 views right elbow. Lateral views nonstandard. COMPARISON: No prior studies for comparison. FINDINGS: Fracture, dislocation or subluxation is not identified. The soft tissues appear within norm al limits. No foreign bodies are identified. IMPRESSION: 1: NO ACUTE BONE OR JOINT ABNORMALITY IDENTIFIED. Reviewed, dictated and finalized at location A.
--- NOTE | ~2023-07-27 | XR_ITS ---
XR shoulder RT min 2V 07/27/2023 11:31 INDICATION: Right shoulder pain PROCEDURE: 4 views right shoulder COMPARISON: No prior studies for comparison. FINDINGS: Fracture, dislocation or subluxation is not identified. The soft tissues appear within norm al limits. No foreign bodies are identified. IMPRESSION: 1: NO ACUTE BONE OR JOINT ABNORMALITY IDENTIFIED. Reviewed, dictated and finalized at location A.
[2023-07-27 10:14] VITALS: BP 169/97; PULSE 77; RESP 18; TEMP 36.9; O2SAT 100
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
[2023-07-27] MEDS: CYCLOBENZAPRINE HCL 10 MG TABLET PO (11:01)
[2023-07-27] MEDS: HYDROcodone/acetaminophen (*CRX) 5-325 MG TABLET 1 TAB PO (11:02)
[2023-07-27] MEDS: KETOROLAC 30 MG/ML VIAL (*BKC) IM (11:02)
[2023-07-27 13:29] VITALS: PULSE 80; RESP 18; O2SAT 100
== END 2023-07-27 13:30 | disposition home or self-care (01) ==
PROVIDERS: Emergency Provider Nurse Practitioner Family; PCP Family Medicine
DX: S16.1XXA Strain of muscle, fascia and tendon at neck level, initial encounter (principal); S46.911A Strain of unspecified muscle, fascia and tendon at shoulder and upper arm level, right arm, initial encounter; N80.9 Endometriosis, unspecified; E28.2 Polycystic ovarian syndrome; D68.00 Von Willebrand disease, unspecified; K58.9 Irritable bowel syndrome, unspecified; V43.52XA Car driver injured in collision with other type car in traffic accident, initial encounter; Z90.49 Acquired absence of other specified parts of digestive tract
CPT/HCPCS: 72125; 73030; 73080; 96372; 99284; A9270; J1885

== ENCOUNTER 2023-09-11 08:55 | Emergency (ER) | payer BC, SELFPAY ==
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
--- NOTE | ~2023-09-11 | XR_ITS ---
EXAMINATION: XR shoulder RT min 2V INDICATION: Right shoulder pain TECHNIQUE: Four views of the right shoulder are submitted. COMPARISON: 07/27/2023 FINDINGS: Normal alignment. No fracture. Glenohumeral and acromioclavicular joint spaces are normal. Soft tissues are unremarkable. No productive changes of bony healing are identified. IMPRESSION: 1. No acute osseous abnormality. Reviewed, dictated and finalized at location B. RUNNER
[2023-09-11 09:00] VITALS: BP 152/85; PULSE 78; RESP 18; TEMP 36.4; O2SAT 98
[2023-09-11 09:26] VITALS: BP 148/99; PULSE 69; RESP 18; O2SAT 100
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
[2023-09-11 10:59] VITALS: BP 140/80; PULSE 80; RESP 18; O2SAT 100
== END 2023-09-11 10:59 | disposition home or self-care (01) ==
PROVIDERS: Emergency Provider Nurse Practitioner Family; PCP Emergency Medicine
DX: S16.1XXA Strain of muscle, fascia and tendon at neck level, initial encounter (principal); S29.012A Strain of muscle and tendon of back wall of thorax, initial encounter; S49.91XA Unspecified injury of right shoulder and upper arm, initial encounter; J45.909 Unspecified asthma, uncomplicated; E11.9 Type 2 diabetes mellitus without complications; E28.2 Polycystic ovarian syndrome; K58.9 Irritable bowel syndrome, unspecified; D68.01 Von Willebrand disease, type 1; N80.9 Endometriosis, unspecified; Z90.49 Acquired absence of other specified parts of digestive tract; M47.814 Spondylosis without myelopathy or radiculopathy, thoracic region; V49.40XA Driver injured in collision with unspecified motor vehicles in traffic accident, initial encounter
CPT/HCPCS: 72125; 72128; 73030; 81025; 99284

== ENCOUNTER 2023-10-14 20:16 | Emergency (ER) | payer BC, SELFPAY ==
--- NOTE | ~2023-10-14 | XR_ITS ---
EXAMINATION: XR chest 2V DATE: 10/14/2023 20:51 INDICATION: Chest pain and shortness of breath TECHNIQUE: PA and lateral views of the chest were obtained. COMPARISON: Chest radiograph dated 04/02/2023 FINDINGS: The lungs remain clear with no focal airspace opacities, pulmonary edema, pleural effusion or pneumot horax. The cardiomediastinal silhouette is normal. Cholecystectomy clips in right upper quadrant. Mil d mid thoracic levocurvature. IMPRESSION: 1. No acute cardiopulmonary disease. Reviewed, dictated and finalized at location A. MAN
--- NOTE | 2023-10-14 20:19 | ECG_ITS ---
Measurements Intervals [place] Rate: 102 P: 8 AK: 142 QRS: -21 QRSD: 92 T: 29 QT: 334 QTc: 435 Interpretive Statements SINUS TACHYCARDIA BORDERLINE LEFT AXIS DEVIATION [QRS AXIS < -20] INCOMPLETE RIGHT BUNDLE BRANCH BLOCK [90+ ms QRS DURATION, TERMINAL R IN V1/V2, 40+ ms S IN I/aVL/V4/V5/V6] MODERATE VOLTAGE CRITERIA FOR LVH, CONSIDER NORMAL VARIANT [MEETS CRITERIA IN ONE OF: R(aVL), S(V1), R(V5), R(V5/V6)+S(V1)] NONSPECIFIC T-WAVE ABNORMALITY POOR R-WAVE PROGRESSION ABNORMAL ECG COMPARED TO ECG 04/02/2023 12:54:58 T-WAVE ABNORMALITY NOW PRESENT Electronically Signed On 10-15-2023 16:54:40 CERAMIC DESIGNER by Gordy Lowe M.D.
[2023-10-14 20:25] VITALS: BP 135/83; PULSE 99; RESP 14; TEMP 36.8; O2SAT 100
[2023-10-14 20:39] LABS: Basophils Percent Auto 0.4 % (0.2-1.2); Eosinophils Percent Auto 0.1 % (0-4.4); Hematocrit 38.7 % (37.0-47.0); Hemoglobin 12.2 g/dL (12.0-15.0); Immature Granulocyte Absolute 0.01 K/mm3 (0.00-0.031); Immature Granulocyte Percent A 0.1 % (0-0.5); Lymphocytes Absolute Auto 0.89 K/mm3 (0.9-3.2); Mean Corpuscular HGB Conc 31.5 g/dl (32-36); Mean Corpuscular Volume 82.5 fl (80-100); Mean Platelet Volume 10.2 fl (7.4-10.4); Monocytes Absolute Auto 0.4 K/mm3 (0.1-0.6); Monocytes Percent Auto 6.3 % (2.6-8.5); Neutrophils Absolute Auto 5.5 K/mm3 (1.3-6.7); Neutrophils Percent Auto 80.1 % (45.5-73.1); Platelet Count Result 186 k/mm3 (150-375); Red Blood Count 4.69 M/mm3 (4.2-5.4); Red Cell Distribution Width 14.6 % (11.5-14.5); White Blood Count 6.8 K/mm3 (4.5-10.0)
[2023-10-14 20:49] LABS: Partial Thromboplastin Time 34.9 SECONDS (22.3-36.8); Prothrombin Time 13.9 Seconds (11.1-14.7)
[2023-10-14 20:52] LABS: Alanine Aminotransferase 17 U/L (6-35); Albumin Level 4.4 g/dL (3.5-5.1); Alkaline Phosphatase 65 U/L (38-126); Anion Gap 8 mmol/L (8-16); Aspartate Amino Transferase 26 U/L (14-36); Bilirubin,Total 0.5 mg/dL (0.2-1.3); Blood Urea Nitrogen 8 mg/dL (7-17); Calcium 9.4 mg/dL (8.4-10.2); Carbon Dioxide 26 mmol/L (22-30); Chloride 102 mmol/L (98-107); Estimated Glomerular Filt Rate > 60; Glucose 96 mg/dL (65-110); Lipase 36 U/L (23-300); Potassium 4.1 mmol/L (3.4-5.0); Sodium 136 mmol/L (137-145)
[2023-10-14 21:01] LABS: Troponin I < 0.012 ng/mL (0.000-0.034)
[2023-10-14 22:24] VITALS: PULSE 89
[2023-10-14 22:26] VITALS: BP 130/79; PULSE 91; RESP 18; O2SAT 100
--- NOTE | 2023-10-14 22:58 | ED.GENADULT ---
HPI - General Adult General Chief complaint: Chest Pain Stated complaint: Chest pain, SOB, vomiting blood Time Seen by Provider: 10/14/23 22:38 Source: patient Mode of arrival: ambulatory Limitations: no limitations History of Present Illness HPI narrative: this is a 28-year-old female who presents to the ED with chief complaint of chest pain beginning at 4:00 a.m. this morning. Reports location in the chest and radiates to the right somewhat. Reports she has felt intermittently short of breath. Also reports episodes of vomiting with of yellow-green mucus emesis and blood streaks. Reports that she has had a cough that developed as well today. This seems to be causing irritated sore throat. Endorses fatigue. Reports she went to [facility] and received Zofran there but left before being seen by a provider. Denies fevers, chills, abdominal pain, diarrhea, urinary problems, neck pain, headache. Related Data Home Medications Medication Instructions Recorded Confirmed dicyclomine 10 mg capsule 10 mg PO TID 07/12/23 07/12/23 Allergies Allergy/AdvReac Type Severity Reaction Status Date / Time No Known Allergies Allergy Verified 10/14/23 22:27 Review of Systems Review of Systems: All systems as dictated in HPI PENDING SALE TO [facility] Past Medical History Medical History Anxiety Asthma Diabetes Endometriosis History of miscarriage x 3 IBS (irritable bowel syndrome) Patient denies significant medical history PCOS (polycystic ovarian syndrome) Von Willebrand disease, type I Surgical History Surgical History History of ankle surgery History of cholecystectomy History of endoscopy [place] teeth removed Family History Family History Father Hypertension Hyperlipidemia Mother Migraines Grandparent Asthma Breast cancer Diabetes mellitus Hypertension Social History Social History Smoking status: Never smoker Alcohol intake: current Substance use: never Exam Narrative: GENERAL: Well-appearing, well-nourished, and in no acute distress. HEAD: Normocephalic, atraumatic. EYES: PERRLA and EOMI. ENT: Mild tonsillar hypertrophy bilaterally With erythema. No exudates. Nares clear, no rhinorrhea or epistaxis. Mucous membranes moist. NECK: Supple. No adenopathy or masses. CHEST: No respiratory distress. Clear to auscultation. No wheezes rales or rhonchi . Right chest wall tenderness present. HEART: Regular rate and rhythm. No murmur heard. Normal peripheral pulses. ABDOMEN: Soft, nontender, nondistended, normal active bowel sounds. MSK: Normal range of motion. No edema. SKIN: Warm, dry, no rash. NEURO: Alert and oriented x3. No focal deficits. PSYCH: Normal mood and affect. Course Vital Signs Vital signs: Vital Signs Temperature 98.2 F 10/14/23 20:25 Pulse Rate 99 10/14/23 20:25 Respiratory Rate 14 10/14/23 20:25 Blood Pressure 135/83 10/14/23 20:25 Pulse Oximetry 100 10/14/23 20:25 Oxygen Delivery Room Air 10/14/23 20:25 Temperature 98.2 F 10/14/23 20:25 Pulse Rate 100 10/14/23 23:43 Respiratory Rate 17 10/14/23 23:43 Blood Pressure 127/67 10/14/23 23:43 Pulse Oximetry 100 10/14/23 23:43 Oxygen Delivery Room Air 10/14/23 20:25 Medical Decision Making MDM Narrative Medical decision making narrative: this is a 28-year-old female who presents to the ED with chief complaint of chest pain, vomiting, cough. All began around 0 400 this morning. Vitals are normal. Exam largely unremarkable, only shows chest wall tenderness on the right. No acute abdomen. Lab work again largely unremarkable. D-dimer only very slightly elevated at 0.57. YEARS criteria negative for PE. Troponin negative. Chest x-ray negative.
[2023-10-14 23:24] LABS: D Dimer 0.57 ug/mL (<0.48)
--- NOTE | 2023-10-14 23:29 | ECG_ITS ---
Measurements Intervals [place] Rate: 97 P: 18 MD: 143 QRS: -19 QRSD: 93 T: 24 QT: 332 QTc: 423 Interpretive Statements SINUS RHYTHM INCOMPLETE RIGHT BUNDLE BRANCH BLOCK [90+ ms QRS DURATION, TERMINAL R IN V1/V2, 40+ ms S IN I/aVL/V4/V5/V6] NONSPECIFIC T-WAVE ABNORMALITY ABNORMAL ECG COMPARED TO ECG 10/14/2023 20:25:25 SINUS RHYTHM NOW PRESENT Electronically Signed On 10-15-2023 16:57:08 CORPORATE ACCOUNTANT by Gordy Lowe M.D.
[2023-10-14 23:43] VITALS: BP 127/67; PULSE 100; RESP 17; O2SAT 100
[2023-10-14 23:51] LABS: Troponin I < 0.012 ng/mL (0.000-0.034)
[2023-10-15 00:05] LABS: Influenza A QL RT-PCR Positive (Negative); Influenza B QL RT-PCR Negative (Negative); RSV RNA, RT-PCR Negative (Negative); SARS-CoV-2 RNA PCR Negative (Negative)
== END 2023-10-15 00:45 | disposition home or self-care (01) ==
PROVIDERS: Emergency Medicine; Emergency Provider Physician Assistant; PCP Emergency Medicine
DX: J10.1 Influenza due to other identified influenza virus with other respiratory manifestations (principal); E11.9 Type 2 diabetes mellitus without complications; Z20.822 Contact with and (suspected) exposure to COVID-19
CPT/HCPCS: 36415; 71046; 80053; 81025; 83690; 84484; 85025; 85380; 85610; 85730; 87637; 93005; 99284

== ENCOUNTER 2024-05-26 14:18 | Emergency (ER) | payer BC, SELFPAY ==
[2024-05-26 14:36] VITALS: BP 151/91; PULSE 84; RESP 20; TEMP 36.7; O2SAT 100
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
[2024-05-26 14:58] LABS: EDUAAPPEAR Clear; EDUABILI Negative; EDUABLOOD 1+; EDUACOLOR1 Yellow; EDUAGLUCOSE Negative; EDUAKETONE Negative; EDUALEUKO 1+; EDUANITRATE Negative; EDUAPH 6.5; EDUAPROTEIN Negative; EDUAUROBILI 0.2
[2024-05-26] MEDS: cefTRIAXone 500 MG, LIDOCAINE HCL 1% LOCAL INJ 1 ML IM (15:10)
[2024-05-26 19:51] LABS: Trichomonas Vag PCR NOT DETECTED (NOT DETECTE)
[2024-05-26 20:14] LABS: Chlamydia trachomatis NOT DETECTED (NOT DETECTE); Neisseria gonorrhoeae PCR NOT DETECTED (NOT DETECTE)
== END 2024-05-26 15:25 | disposition home or self-care (01) ==
PROVIDERS: Emergency Provider Nurse Practitioner
DX: N39.0 Urinary tract infection, site not specified (principal); Z11.3 Encounter for screening for infections with a predominantly sexual mode of transmission; J45.909 Unspecified asthma, uncomplicated; E11.9 Type 2 diabetes mellitus without complications; N80.9 Endometriosis, unspecified; E28.2 Polycystic ovarian syndrome; D68.01 Von Willebrand disease, type 1
CPT/HCPCS: 81003; 87086; 87088; 87491; 87591; 87661; 96372; 99214; G0463; J0696

== ENCOUNTER 2024-10-11 17:47 | Emergency (ER) | payer BC, SELFPAY ==
[2024-10-11 17:58] VITALS: BP 141/87; PULSE 78; RESP 16; TEMP 37.1; O2SAT 98
--- NOTE | 2024-10-11 18:11 | ED_ITS ---
HPI - Skin/Abscess/Foreign Bdy General Chief complaint: Skin/Abscess/Foreign Body Stated complaint: Rash/ Test Time Seen by Provider: 10/11/24 18:14 Source: patient Mode of arrival: ambulatory Limitations: no limitations History of Present Illness HPI narrative: 29 y/o female presented for c/o 2 concerns. States she had a faintly positive test today and would like to recheck this. Reports LMP 2 months ago, and has been feeling nausea and sensitivity to smells. Also reports eczema to neck. Say skin is dry and cracked. Applied oil and creams. Denies any other location of rash. Related Data Home Medications Medication Instructions Recorded Confirmed albuterol sulfate 90 mcg/actuation 1 inh inhalation QID 05/26/24 05/26/24 aerosol inhaler fluticasone propionate 44 1 puff inhalation BID 05/26/24 05/26/24 mcg/actuation HFA aerosol inhaler ibuprofen 800 mg tablet 800 mg PO TID PRN PAIN 05/26/24 05/26/24 progesterone micronized 100 mg See Rx Instructions .Route .COMPLEX 05/26/24 05/26/24 capsule Allergies Allergy/AdvReac Type Severity Reaction Status Date / Time No Known Allergies Allergy Verified 10/14/23 22:27 Review of Systems Review of Systems: CONSTITUTIONAL: Denies body aches, fever, chills, or sweats. EYES: Denies visual changes, redness, or discharge. ENT: Denies rhinorrhea, congestion CARDIOVASCULAR: Denies chest pain, palpitations, or edema. RESPIRATORY: Denies cough or dyspnea. GASTROINTESTINAL: Denies abdominal pain, nausea, vomiting, or diarrhea. SKIN: per HPI MUSCULOSKELETAL: Denies back pain, joint pain, or myalgia. NEUROLOGIC: Denies headache, numbness, tingling, or weakness. [facility], [facility] Past Medical History Medical History Anxiety Asthma Diabetes Endometriosis History of miscarriage x 3 IBS (irritable bowel syndrome) Patient denies significant medical history PCOS (polycystic ovarian syndrome) Von Willebrand disease, type I Surgical History Surgical History History of ankle surgery History of cholecystectomy History of endoscopy [place] teeth removed Family History Family History Father Hypertension Hyperlipidemia Mother Migraines Grandparent Asthma Breast cancer Diabetes mellitus Hypertension Social History Social History Smoking status: Never smoker Alcohol intake: current Substance use: never Comments At time of signature, I have reviewed and agree with nursing past medical, surgical, social and family history unless otherwise noted. Please see nursing chart for further information. There is no relevant family history pertinent to the presenting complaint Exam Narrative: GENERAL: Well-appearing EYES: conjunctivae clear, and EOMI. ENT: Mucous membranes moist. Oropharynx without edema, erythema or lesions. NECK: Supple. CHEST: Clear to auscultation. HEART: Regular rate and rhythm. SKIN: Warm, dry. Mild erythema to right neck, skin dry and cracked c/w eczema NEURO: Alert and oriented x3. Course Course Emergency Course: Patient is aware of diagnosis, understands and agrees to treatment plan. Anticipatory guidance given. Patient agrees to follow-up as directed and is aware of reasons to seek care at the emergency department. Portions of this record may have been created with voice recognition software Level of Care: Express Care Visit Vital Signs Vital signs: Vital Signs Temperature 98.7 F 10/11/24 17:58 Pulse Rate 78 10/11/24 17:58 Respiratory Rate 16 10/11/24 17:58 Blood Pressure 141/87 H 10/11/24 17:58 Pulse Oximetry 98 10/11/24 17:58 Temperature 98.7 F 10/11/24 17:58 Pulse Rate 78 10/11/24 17:58 Respiratory Rate 16 10/11/24 17:58 Blood Pressure 141/87 H 10/11/24 17:58 Pulse Oximetry 98 10/11/24 17:58 Reviewed MDM - Skin/Abscess/Foreign Bdy MDM Narrative Medical decision making narrative: Pt is aware of negative test result, will f/u with obgyn Discussed physical exam findings c/w eczema. Advised supportive measures and signs/symptoms to go to the ER. Pt is appropriate for outpt treatment and f/u. Differential Diagnosis Differential diagnosis: Likely abscess of skin or subcutaneous tissue, urticaria, herpes zoster, cellulitis and contact dermatitis Discharge Plan Discharge Clinical Impression: Irregular menses, Eczema Patient Disposition: Home, Self-Care Condition: Stable Instructions: Eczema (ED) Additional Instructions: Recommend following up with an Obgyn for further evaluation of your irregular menstrual cycles Skin: Wash the area with gentle soap and water only. Allow to fully dry. Use skin cream as prescribed to reduce itchiness Avoid scratching when possible to prevent worsening of the condition and disruption of the skin that could lead to bacterial infection Avoid irritants (scents, perfume, jewelry etc). Use Aquaphor or Eucerin Follow up with your primary care provider as needed in 1 week Go to the ER for worsening symptoms or concerns Prescriptions: New triamcinolone acetonide 0.025 % cream 1 applic topical BID Qty: 15 0RF No Action ibuprofen 800 mg tablet 800 mg PO TID PRN (Reason: PAIN) fluticasone propionate [Flovent] 44 mcg/actuation Hfa Aerosol Inhaler 1 puff INHALATION BID Rx Instructions: administer with spacer albuterol sulfate [ProAir HFA] 90 mcg/actuation Hfa Aerosol Inhaler 1 inh INHALATION QID progesterone micronized 100 mg Capsule See Rx Instructions .ROUTE .COMPLEX Rx Instructions: PRESCRIBED sulfamethoxazole-trimethoprim 800-160 mg tablet 1 tablet PO Q12H 7 Days Qty: 14 0RF Follow-up/Referrals: Kemal Reeves MD [Physician] - PHYSICIAN,FLIGHT INSPECTOR [Primary Care Provider] - Time of Disposition: 18:30
[2024-10-11 18:29] LABS: BEDSIDEPREGUCG Negative (Negative)
== END 2024-10-11 18:34 | disposition home or self-care (01) ==
PROVIDERS: Emergency Provider Nurse Practitioner Family
DX: L30.9 Dermatitis, unspecified (principal); N92.6 Irregular menstruation, unspecified; E11.9 Type 2 diabetes mellitus without complications; N80.9 Endometriosis, unspecified; J45.909 Unspecified asthma, uncomplicated; E28.2 Polycystic ovarian syndrome; D68.01 Von Willebrand disease, type 1
CPT/HCPCS: 81025; 99213; G0463

== ENCOUNTER 2025-04-01 10:59 | Emergency (ER) | payer BC, SELFPAY ==
--- NOTE | 2025-04-01 11:03 | ED.FEMALEGU ---
HPI - Female Genitourinary General Stated complaint: Uti Symptoms/Std Test Time Seen by Provider: 04/01/25 11:20 Source: patient Mode of arrival: ambulatory Limitations: no limitations History of Present Illness HPI Narrative: Marybel is a 30 year old female patient presenting to the clinic today with complaints of possible UTI/STI testing. She reports she has had some burning with urination and frequency with urgency of urination. Also concern for STIs and she recently had a 3 some and has had a slight bit of vaginal discharge and her partners complaining of some penile discharge. Reports no vaginal odor. No fevers, chills, body aches. States that her partner will be coming in later to be tested. Related Data Home Medications ?Medication ?Instructions ?Recorded ?Confirmed ?Last Taken ?Type albuterol sulfate 90 mcg/actuation 1 inh inhalation QID 05/26/24 05/26/24 Unknown History aerosol inhaler fluticasone propionate 44 1 puff inhalation BID 05/26/24 05/26/24 Unknown History mcg/actuation HFA aerosol inhaler progesterone micronized 100 mg See Rx Instructions .Route .COMPLEX 05/26/24 05/26/24 Unknown History capsule Allergies Allergy/AdvReac Type Severity Reaction Status Date / Time No Known Allergies Allergy Verified 04/01/25 11:04 Review of Systems Review of Systems: Pertinent positives per HPI. Patient denies any fever, chills, rash, headache, visual changes, dizziness, cough, shortness of breath, chest pain, palpitations, nausea, vomiting, diarrhea, constipation, abdominal pain, or any urinary issues. [facility] Past Medical History Medical History Anxiety Asthma Diabetes Endometriosis History of miscarriage x 3 IBS (irritable bowel syndrome) Patient denies significant medical history PCOS (polycystic ovarian syndrome) Von Willebrand disease, type I Surgical History Surgical History History of cholecystectomy [place] teeth removed History of endoscopy History of ankle surgery Family History Family History Father Hypertension Hyperlipidemia Mother Migraines Grandparent Asthma Breast cancer Diabetes mellitus Hypertension Social History Social History Smoking status: Never smoker Alcohol intake: current Substance use: never Comments At the time of my signature, I reviewed and agree with the nursing past medical, surgical, social, and family history. There is no relevant family history pertinent to the patient complaint. Exam Narrative: General: Well-developed, morbidly obese, in no apparent distress. Head: Normocephalic, atraumatic. Cardio: Regular rate and rhythm, s1 and s2 normal, no murmur appreciated. Resp: Clear to auscultation bilaterally, no rhonchi, rales, wheezing or rubs. Abdomen: Soft, pliable, bowel sounds present in all quadrants, non-tender to palpation, no organomegly, no CVAT tenderness. : Deferred Course Course Emergency Course: Portions of this record may have been created with voice recognition software. Level of Care: Express Care Visit Vital Signs Vital signs: Vital Signs Temperature 36.1 C L 04/01/25 11:11 Pulse Rate 83 04/01/25 11:11 Respiratory Rate 18 04/01/25 11:11 Blood Pressure 141/108 H 04/01/25 11:11 Pulse Oximetry 98 04/01/25 11:11 Oxygen Delivery Room Air 04/01/25 11:11 Temperature 36.1 C L 04/01/25 11:11 Pulse Rate 83 04/01/25 11:11 Respiratory Rate 18 04/01/25 11:11 Blood Pressure 141/108 H 04/01/25 11:11 Pulse Oximetry 98 04/01/25 11:11 Oxygen Delivery Room Air 04/01/25 11:11 Vital signs reviewed MDM - Female Genitourinary MDM Narrative Medical decision making narrative: At the time of visit patient is resting comfortably on the exam table. Patient appears to be nontoxic. Labs: Urinalysis positive for trace of leukocytes. Urine culture was sent to the lab. Will send off urine for chlamydia, gonorrhea, and Trichomonas testing. Plan: Patient has positive urinalysis with trace of leukocytes. Due to symptoms will go ahead and empirically treat with Macrobid and send urine for culture. Awaiting STI testing results for treatment. Supportive measures were discussed with the patient and they voiced understanding discharge instructions and agrees to treatment plan. Return precautions reviewed Differential Diagnosis Differential diagnosis: Likely urinary tract infection, bacterial vaginosis, trichomoniasis, cervicitis, ovarian cyst, vaginitis, ruptured ovarian cyst and cystitis Lab Data Labs: Lab Results 04/01/25 Range/Units 11:22 POC Urine Color Dark POC Urine Clarity Clear POC Urine pH 6.5 POC Ur Specif [place] 1.015 POC Urine Protein Negative (Negative) POC Ur Glucose (UA) Negative (Negative) POC Urine Ketones Negative (Negative) POC Urine Blood Negative (Negative) POC Urine Nitrite Negative (Negative) POC Urine Bilirubin Negative (Negative) POC Urine Urobilinogen 0.2 POC U Leukocyte Esteras Trace (Negative) Discharge Plan Discharge Clinical Impression: UTI (urinary tract infection) Qualifiers: Urinary tract infection type: acute cystitis Hematuria presence: without hematuria Qualified Code(s): N30.00 - Acute cystitis without hematuria Patient Disposition: Home Condition: Stable Instructions: Antibiotic Form, Sexually Transmitted Diseases (ED), Safe Sex Practices (ED), Urinary Tract Infection in Women (ED) Additional Instructions: We have tested you for STIs in the clinic today. Avoid any sexual activity- includes oral, anal, or vaginal intercourse until you get results back and have completed any additional recommended treatment regimens. Results typically can take 7-10 days to come back. Occasionally it may be longer depending on [place] labs as this testing [place] out of [place]. May call [facility] location that you had testing completed for results in that time frame. We will contact you if testing is positive and make sure your treatment was appropriate for the type of STI. If blood testing was ordered we will contact you with results and any further recommendation after they are reviewed by provider. If symptoms worsen after treatment recommend reevaluation with your PCP or [facility]. Urinalysis shows trace of leukocytes. We will send urine for culture. Take Macrobid as prescribed Increase fluids and stay well hydrated Wipe front to back. May use wet wipes. Avoid tub baths If sexually active- pee before and after intercourse. Wear cotton panties Avoid tight clothing up against the genitals Follow up with your PCP in 1 week if symptoms persist. Patient Language: French Prescriptions: New nitrofurantoin monohyd/m-cryst [Macrobid] 100 mg capsule 100 mg PO Q12H 5 Days Qty: 10 0RF Rx Instructions: must administer with a meal/food No Action fluticasone propionate [Flovent] 44 mcg/actuation Hfa Aerosol Inhaler 1 puff INHALATION BID Rx Instructions: administer with spacer albuterol sulfate [ProAir HFA] 90 mcg/actuation Hfa Aerosol Inhaler 1 inh INHALATION QID progesterone micronized 100 mg Capsule See Rx Instructions .ROUTE .COMPLEX Rx Instructions: PRESCRIBED triamcinolone acetonide 0.025 % cream 1 applic topical BID Qty: 15 0RF Follow-up/Referrals: PHYSICIAN,MANUFACTURING FINANCE MANAGER [Primary Care Provider] - Time of Disposition: 11:47 Quality NIHSS Nursing Documentation ED NIHSS nursing documentation: reviewed/agree
[2025-04-01 11:11] VITALS: BP 141/108; PULSE 83; RESP 18; TEMP 36.1; O2SAT 98
[2025-04-01 11:25] LABS: EDUAAPPEAR Clear; EDUABILI Negative (Negative); EDUABLOOD Negative (Negative); EDUACOLOR1 Dark; EDUAGLUCOSE Negative (Negative); EDUAKETONE Negative (Negative); EDUALEUKO Trace (Negative); EDUANITRATE Negative (Negative); EDUAPH 6.5; EDUAPROTEIN Negative (Negative); EDUASPGRAVITY 1.015; EDUAUROBILI 0.2
[2025-04-01 21:28] LABS: Trichomonas Vag PCR NOT DETECTED (NOT DETECTE)
[2025-04-01 21:52] LABS: Chlamydia trachomatis NOT DETECTED (NOT DETECTE); Neisseria gonorrhoeae PCR NOT DETECTED (NOT DETECTE)
== END 2025-04-01 11:49 | disposition home or self-care (01) ==
PROVIDERS: Emergency Provider Nurse Practitioner Family
DX: N30.00 Acute cystitis without hematuria (principal); Z20.822 Contact with and (suspected) exposure to COVID-19; E11.9 Type 2 diabetes mellitus without complications; J45.909 Unspecified asthma, uncomplicated; N80.9 Endometriosis, unspecified; E28.2 Polycystic ovarian syndrome; D68.01 Von Willebrand disease, type 1
CPT/HCPCS: 81003; 87086; 87491; 87591; 87661; 99213; G0463